=== PATIENT | female | born 1990 | race Two or more races ===

== ENCOUNTER 2024-11-21 00:14 | Emergency (ER) | payer MEDICARE, MEDICAID ==
[~2024-11-21] VITALS: Ht 180.3 cm; Wt 80.5 kg
--- NOTE | 2024-11-21 00:55 | ED.PDOC ---
History of Present Illness HPI Comments 34 y/o F is BIBA for c/o EtOH intoxication and left-wrist laceration, today. Per EMS report, patient's family called on patient's behalf, due to her intoxicating herself with heavy amounts of EtOH and cutting her left-wrist after getting into a verbal altercation with her [id number], earlier, this evening. Patient is reported to have had a Hx of cutting her wrists and 1x suicidal attempt in the past. At time of assessment, patient endorses on today's incident not being driven by thoughts on wanting to end her life. Patient denies having any current suicidal or homicidal ideations, visual or auditory hallucinations, additional self-inflicted injuries, or other associated symptoms or modifiers at this time. Chief Complaint: ETOH Time Seen by MD: 00:14 Reviewed Notes: Nurses Notes, Medications, Allergies Allergies: Coded Allergies: Morphine (Verified Allergy, Unknown, 11/21/24) Tramadol (Verified Allergy, Unknown, 11/21/24) Information Source: Patient, Emergency Med Personnel Mode of Arrival: EMS Severity: Moderate Timing: Hours Duration: Since onset Prehospital treatment: 12 Lead EKG, [facility] Past Medical History Past Medical History (Other): suicidal ideations, selft-harm Surgical History: Denies all surgeries LICENSING WORKER History: Denies all LICENSING WORKER Hx Family History Family History: Unknown Social History Smoker: Non-Smoker Alcohol: Heavy Drugs: Denies Drug Use Lives In: Home Integumetry: reports: laceration (left wrist) All Other Systems: Reviewed and Negative (negative unless otherwise stated above or in HPI) Physical Exam General Appearance: No Apparent Distress, Normal HEENT: Normal ENT Inspection, Pharynx Normal, TMs Normal Neck: Full Range of Motion, Non-Tender, Normal, Normal Inspection Respiratory: Chest Non-Tender, Lungs Clear, No Accessory Muscle Use, No Respiratory Distress, Normal Breath Sounds Cardiovascular: No Edema, No JVD, No Murmur, No Gallop, Normal Peripheral Pulses, Regular Rate/Rhythm Breast Exam: Deferred Gastrointestinal: No Organomegaly, Non Tender, No Pulsatile Mass, Normal Bowel Sounds, Soft Genitalia: Deferred Pelvic: Deferred Rectal: Deferred Extremities: No calf tenderness, Normal capillary refill, Normal inspection, Normal range of motion, Non-tender, No pedal edema Musculoskeletal : Apperance: Normal Neurologic: Alert, global manager II-XII nml as Tested, No Motor Deficits, Normal Affect, Normal Mood, No Sensory Deficits Cerebellar Function: Normal Reflexes: Normal Skin: Dry, Lacerations (3.5cm laceration to left-wrist ), Normal Color, Warm Lymphatic: No Adenopathy Was a procedure done? Was a procedure done?: Yes Sedation Sedation?: No Laceration Repair : Location Left wrist Length 3.5 cm Anesthetic: Lidocaine Laceration Repair Prep: Saline Laceration Repair Wound Comple: epidermis/dermis repair Laceration Repair: Number of sutures (4), Size (4-0), Nylon, Non-adherent gauze, Gauze, Nothing Informed consent obtained: Yes Risks, benefits, and alternati: Yes Differential Dx Considerations may include: self-harm ideations, suicidal ideations, depression, hopelessness, ETOH intoxication X-Ray, Labs, Meds, VS Vital Signs Date Time Temp Pulse Resp B/P (MAP) Pulse Ox O2 Delivery O2 Flow Rate FiO2 11/21/24 00:20 98.0 96 18 119/60 (79) 97 X-Ray, Labs, Meds, VS Comment Imaging: X-rays and CT scans were reviewed and interpreted by this provider, imaging shows no fractures and no pathological disease. Pending radiology review. Laboratory: Labs reviewed and interpreted by this provider. No significant abnormalities noted. Patient has prior medical visits reviewed. Med reconciliation performed Vital signs reviewed Patient remained under observation, pending consult with tele psych Time of 1ST Reevaluation: 00:46 Reevaluation 1ST: Unchanged Patient Education/Counseling: Diagnosis, Treatment Family Education/Counseling: No Family Present Assigned to Dr. Araiza Change of Shift?: Yes Departure 1 Departure Time of Disposition: 01:41 Impression: Primary Impression: Wrist laceration Qualified Codes: S61.512A - Laceration without foreign body of left wrist, initial encounter Additional Impressions: Self-harming behavior ETOH abuse Disposition: 30 STILL A PATIENT Condition: Stable Discharged With: Self Critical Care Note Critical Care Time?: No Stability Stability form required: No Heart Score Heart Score: Heart Score Response (Comments) Value History N/A 0 EKG N/A 0 Age N/A 0 Risk Factors N/A 0 Troponin N/A 0 Total 0 I personally scribed for DUSTIN BLEVINS ([email or web address]) on 11/21/24 at 00:55. Electronically submitted by Brien Oconnell ([email or web address]). DUSTIN BLEVINS Nov 21, 2024 00:55
[2024-11-21 01:48] LABS: Basophils # (auto) 0.1 10 ^3/uL (0-0.2); Basophils % (auto) 0.8 % (0.0-2.0); Eosinophils # (auto) 0.2 10 ^3/uL (0-0.8); Eosinophils % (auto) 2.9 % (0.0-7.0); Hematocrit 41.8 % (36.0-46.0); Hemoglobin 14.4 g/dL (12.2-16.2); Lymphocytes # (auto) 1.9 10 ^3/uL (0.4-5.4); Mean Corpuscular Hemoglobin 31.8 pg (28.0-32.0); Mean Corpuscular Hgb Conc. 34.4 g/dL (32.0-36.0); Mean Corpuscular Volume 92.4 fL (80.0-100.0); Monocytes # (auto) 0.4 10 ^3/uL (0-1.3); Neutrophils # (auto) 3.6 10 ^3/uL (1.6-8.6); Neutrophils % (auto) 59.3 % (37.0-80.0); Nucleated Red Blood Cells % 0.1 %; Platelet Count (auto) 373 10^3/uL (140-450); Red Blood Cells 4.52 10^6/uL (4.0-5.20); Red Cell Distribution Width 13.1 % (11.8-14.3); White Blood Cell 6.1 10^3/uL (4.4-10.8)
[2024-11-21 02:30] VITALS: PULSE 82; RESP 18; O2SAT 98
[2024-11-21 02:31] VITALS: BP 105/74; PULSE 82; RESP 16; TEMP 98.4; O2SAT 97
--- NOTE | 2024-11-21 03:16 | DVHINCON2 ---
Date of Service if different f: Nov 21, 2024 Time of Service: 02:50 Consult Consult Note PSYCHIATRY ED NEW CONSULT HPI: 34 yo F pt with PPH of depression presents to ED BIBA for safety, psychiatric stabilization and possible med initiation/optimization in setting of SIB and ETOH intoxication. Psychiatry consulted for safety evaluation and recommendations in context of current presentation Per pt, reports recent ongoing marital strains hence has been consuming increased amount of ETOH including last use of whiskey [employer], earlier today got into verbal altercation with spouse over the phone (pt from who resides in [place]) resulting in SIB via superficial cutting on wrist. However pt denies SIB as suicide attempt/gesture or intention of not wanting to live, rather admits cutting as "way to deal with my emotions and its form of stress release" Currently endorses mild baseline depressed mood but denies hopelessness, helplessness, isolation, negative thoughts, loss of interest, or anhedonia. Denies anxiety/panic/OCD/PTSD symptoms. Adamantly denies SI/HI. Denies AVH/paranoia/catatonic/perceptual disturbances/personality changes. No overt manic, psychotic, major depressive, cognitive, dissociative phenomena, panic, or somatic symptoms noted. Appears future oriented/goal directed. Pt currently does have psychiatrist out in community with upcoming appt later this month, also in process of seeking therapist. Currently rx'd Risperdal, Fluoxetine and Depakote (also rx'd for seizures). Denies any hx of med noncompliance. Has been self medicating mood symptoms with increased ETOH consumption, denies THC or IDU although does have long hx of Meth/ETOH dependency, hx of IVDU, has been sober from meth for several years now with one child although pt from , unemployed, lives with cousin, some support system noted (immediate family). Unknown trauma hx. Unknown FH. No acute medical issues although does have hx of seizures, last seizure couple of months ago, awaiting to seek outpt neurology Does not have hx of suicide attempt x 1 over a decade ago and SIB via cutting. Several prior psych hospitalizations/5150 for SI. Denies history of violence, unprovoked aggression, or assaultive behaviors. Denies recent hx of impulsivity, attention seeking behaviors, anger outbursts, emotional dysregulation, mood r eactivity or engaging in risky behaviors. Does not have access to firearms. Currently denies SI/HI. Identifies self/family as PPF. No safety concerns noted during encounter. MSE: General Appearance/Behavior: Alert and awake; appears bit older than stated age, well developed, fair grooming and hygiene; calm and cooperative, fair eye contact, no PMA/PMR Speech: coherent, rrr Thought Process: linear, logical, appears goal-directed Thought Content: Abnormal Thoughts and Perceptions: None Homicidality / Violent Thoughts: None Suicidality: adamantly denies SI Hallucinations: denies AVH Delusions: denies paranoia, persecutory, or grandiose delusions Obsessions /compulsions : None Judgment and Insight: fair/improved judgment with fair insight Mood & Affect: "okay" with mood-congruent, minimally constricted/restricted, appropriate Orientation: oriented to person, place, time Attention/Concentration: appears intact Memory: grossly intact Language: no unusual or inappropriate language Assessment: 34 yo F pt with PPH of depression presents to ED BIBA for safety, psychiatric stabilization and possible med initiation/optimization in setting of SIB and ETOH intoxication. Currently denies SI/HI/AVH. Linear and appears future oriented/ goal directed in thought. Identifies several protective factors including a desire to live, family support, seeking employment, etc Pts presenting MH symptoms appear more secondary to difficulty controlling emotions and ineffective coping mechanisms in context of acute psychosocial stressor (see HPI) with mild interference in daily functioning. Adamantly denies SIB as suicide attempt/gesture or intention of not wanting to live Presently, pt does not show any signs of immediate danger to self or others that would warrant a higher level of care. Thus, pt does not meet criteria for 5150 or involuntary inpatient psych admission as is not DTS, DTO or GD although voluntary inpt psychiatric hospitalization was offered but pt respectfully declined. Also declined further ED observation/reevaluation. No acute safety concerns noted. Acute suicide risk appears relatively low. Pt currently does have psychiatrist out in community with upcoming appt later this month, also in process of seeking therapist. Remains future oriented to follow up with outpatient MH providers over the next several weeks for ongoing med management/psychotx No indication to change current med regimen at this time. 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 ETOH use d/o, moderate Plan: Does not warrant involuntary inpatient psychiatric hospitalization or 5150 hold at this time No acute safety concerns Pt can be safely discharged back to current residence Resume outpatient psychotropics - med compliance emphasized No med changes or additional meds needed at this time Supportive tx provided, discussed safety plan with pt Emphasized LIMIT EtOH intake, abstain from IDU, and social activation Encouraged mindfulness techniques (reading, walking, meditation, journaling, exercise, deep breathing) during times of stress (rather than cutting/SIB) Pt planning on pursuing ongoing therapy/med management with outpatient MH providers over next several weeks Instructed pt to call [phone] or return to ED if mood symptoms worsen or new ons et SI/HI upon discharge Pt verbalized understanding and is receptive to above tx plan This case was discussed with ED nurse/provider and all parties in agreement with above tx plan Chris Farah MD Plan discussed with: Patient CHRIS FARAH MD Nov 21, 2024 03:15
[2024-11-21] MEDS: ACETAMINOPHEN 325 MG TAB PO ONE (03:46)
== END 2024-11-21 06:19 | disposition home or self-care (01) ==
LOC: EDBD 00:14 → ER 00:14
DX: S61.512A Laceration without foreign body of left wrist, initial encounter (principal); F10.129 Alcohol abuse with intoxication, unspecified; Z91.51 Personal history of suicidal behavior; Z88.5 Allergy status to narcotic agent; X78.8XXA Intentional self-harm by other sharp object, initial encounter; Y93.89 Activity, other specified; Y92.89 Other specified places as the place of occurrence of the external cause; Y99.8 Other external cause status; Y90.0 Blood alcohol level of less than 20 mg/100 ml
CPT/HCPCS: 12002; 36415; 80320; 85025